=== PATIENT | male | born 1975 | race Hispanic/Latino ===

== ENCOUNTER 2018-05-23 15:13 | Emergency (ER) | payer OTHER ==
[~2018-05-23] VITALS: Ht 162.6 cm; Wt 75.9 kg
--- NOTE | 2018-05-23 16:18 | Diagnostic Imaging Report ---
Exam: Right foot 3 views History: Pain, trauma Comparison: None. Findings: No fracture or malalignment. Joint spaces preserved. No abnormal soft tissue calcification or soft tissue defect. Impression: No acute osseous abnormality Signed by: Dr. Sukhdev Cohen M.D. on 05/23/2018 4:16 PM
[2018-05-23] MEDS ORDERED: PEPCID20 MG PO (16:44)
[2018-05-23] MEDS ORDERED: IBUPROFEN400 MG PO (16:44)
== END 2018-05-23 17:05 | disposition home or self-care (01) ==
LOC: FSED 15:13
DX: S90.111A Contusion of right great toe without damage to nail, initial encounter (principal); W22.09XA Striking against other stationary object, initial encounter; Y92.007 Garden or yard of unspecified non-institutional (private) residence as the place of occurrence of the external cause
CPT/HCPCS: 99283